=== PATIENT | female | born 1945 | race Caucasian/White ===

== ENCOUNTER 2024-01-14 01:57 | Outpatient (CLI) | payer MEDICARE, SELFPAY ==
--- NOTE | 2024-01-14 | DI.NM_ITS ---
APPROVED REPORT Exam: Exercise Treadmill Patient Location: Out-Patient Room/Bed: Stress Nurse: Brook Estevez RN Ordering Provider:BROOK WONG, Contact Number: BMI: 33.83 Baseline Rhythm: Sinus Rhythm Indications: Chest tightness Medical History Medical History: Hypothyroid, malignant neoplasm of breast, epigastric pain, HLD Cardiac Medications: Levothyroxine, celecoxib Allergies: Shellfish Cardiac Risk Factors: HLD Previous Cardiac Procedures: None Pretest Chest Pain Characteristics: None Exercise History: Physically active Physical Disabilities: None Lung Sounds: Clear to auscultation Heart Sounds: Regular Stress Test Details Test: Exercise stress testing was performed using a Jose protocol. Nuclear Acquisition: Rest Tc-99m/Stress Tc-99m 1 day Rest Isotope: Tc-99m Sestamibi. Dose: 66 Date: 01/14/2024 Injection Time: 10.0 Stress Isotope: Tc-99m Sestamibi. Dose: 30.0 Date: 01/14/2024 Injection Time: 1155 HR Resting HR Supine: 66 bpm Max Heart Rate (APMHR): 142.983009 bpm Resting HR Standin bpm Target HR (85% APMHR): 120.405730 bpm Max HR Achieved: 132 bpm % of APMHR: 92.96 Recovery HR: 78 bpm HR response to stress: Normal HR response to stress BP Resting BP Supine: 142/60 mmHg Resting BP Standin/86 mmHg Max BP: 174/72 mmHg Recovery BP: 142/68 mmHg BP response to stress: Normal blood pressure response to stress. ECG Resting ECG: Sinus Rhythm Ectopy: None Stress ECG: Sinus Tachycardia ST Change: No significant ST segment changes noted Arrhythmia: Occasional PAC's, rare PVC's Recovery ECG: Sinus Rhythm Recovery ST Change: No significant ST segment changes noted Recovery Arrhythmia: None Clinical Reason for Termination: Target HR Achieved Stress Symptoms: None Exercise duration: 05 min55 sec Highest Stage Reached: Stage 2: 2.5 mph at 12% grade. Exercise capacity: 5.6 METs Angina Score: None [place] Treadmill Score: 5.6 Rate Pressure Product: [id number] Stress ECG Conclusion 1. Resting electrocardiogram was normal 2. Patient exercised on the Jose protocol and completed a workload of 5.6 METS 3. Normal heart rate and blood pressure response to exercise. The patient achieved 93% of predicted heart rate for age 4. There was no electrocardiographic evidence of myocardial ischemia 5. There were no dysrhythmias 6. See MPI report [place] Treadmill Score is 5.6 which is Low risk. Stress Test Summary STAGE Time (mins) Speed (mph) Grade (%) HR BP SpO2 SYMPTOMS METS Supine 66 142/60 95% Standing 74 162/86 1 3 1.7 10 107 97% 4.5 2 6 2.5 12 125 157/78 7 1 min recovery 111 174/72 3 min recovery 83 148/68 97% 6 min recovery 78 142/68 96% MPI Conclusion Myocardial perfusion is normal. There is no ischemia or evidence of prior infarction Ejection fraction is 88% with normal wall motion Radiologist Interpretation Radiologist Interpretation by: Ortiz Guerrero MD Interpretation Date/Time: 01/14/2024 16:14:58
== END 2024-01-14 02:17 ==
PROVIDERS: PCP Physician Assistant Medical; Visit Provider Physician Assistant Medical
DX: R07.89 Other chest pain (principal)
CPT/HCPCS: 78452; 93016; 93018; 93017

== ENCOUNTER 2024-05-11 08:44 | Outpatient (CLI) | payer MEDICARE, SELFPAY ==
--- NOTE | 2024-05-11 08:30 | RT.EKG_ITS ---
APPROVED REPORT Exam: Resting ECG Reason for Exam: chest pain Patient Location: O HR:81 bpm ECG Measurements Heart Rate [address] 144 P 9 QRSd 92 QRS 3 QT 393 T 20 QTc 457 Conclusion Sinus rhythm...normal P axis, V-rate 50- 99 Ventricular premature complex...V complex w/ short R-R interval Abnormal R-wave progression, early transition...QRS area>0 in V2 Left ventricular hypertrophy...multiple voltage criteria I have reviewed and I agree with the emergency room physician's ECG interpretation.
== END 2024-05-11 08:45 | disposition home or self-care (01) ==
LOC: DI.CARD 08:45
PROVIDERS: PCP Physician Assistant Medical; Visit Provider Registered Nurse
DX: R55 Syncope and collapse
CPT/HCPCS: 93010

== ENCOUNTER → 2024-05-11 12:59 | Outpatient (BNVA) | payer MEDICARE, SELFPAY | PROVIDERS: PCP Physician Assistant Medical; Referring Provider Physician Assistant Medical; Visit Provider Registered Nurse | DX: I42.2 Other hypertrophic cardiomyopathy (principal); R55 Syncope and collapse | CPT/HCPCS: 93005; 99205 ==